=== PATIENT | female | born 1950 | race Caucasian/White ===

== ENCOUNTER 2021-03-23 21:00 | Inpatient (IN) ==
[2021-03-23 22:35] LABS: Basophils % 0.4 %; Eosinophils # 0.1 K/mcL (0.0-0.6); Eosinophils % 0.5 %; Hematocrit 35.4 % (35.3-44.9); Hemoglobin 13.2 g/dL (11.5-15.4); Immature Granulocytes % 0.3 % (0-4); Lymphocytes # 1.7 K/mcL (0.6-4.6); Lymphocytes % 18.1 %; Mean Corpuscular Volume 88.5 fL (83.0-100.0); Mean Platelet Volume 9.4 fL (9.4-12.4); Monocytes # 0.6 K/mcL (0.0-1.3); Monocytes % 6.5 %; Neutrophils # 6.8 K/mcL (1.6-8.9); Platelet Count 343 K/mcL (140-400); Red Cell Distribution Width 12.6 % (11.5-14.5); Segmented Neutrophils % 74.2 %; White Blood Count 9.2 K/mcL (4.3-11.1)
[2021-03-23 22:36] LABS: Mean Corpuscular HGB Conc 37.3 g/dL (31.6-35.5)
[2021-03-23 22:54] LABS: BUN/Creatinine Ratio 19 (6-26); Blood Urea Nitrogen 14 mg/dL (8-23); Carbon Dioxide 27 mEq/L (23-29); Chloride 92 mEq/L (98-107); Glucose 122 mg/dL (70-105); Osmolality,Calculated 268 (280-300); Potassium 3.4 mEq/L (3.5-5.1); Sodium 128 mEq/L (136-145); eGFR For African Americans > 60 (> 60); eGFR For Non-African Americans > 60 (> 60)
[2021-03-23 23:08] LABS: Troponin I 1.35 ng/mL (< 0.04)
[2021-03-23] MEDS ORDERED: Aspirin 325 MG TABLET PO ONE (23:16)
[2021-03-23] MEDS ORDERED: 0.9 % Sodium Chloride 1,000 ML IV ONE (23:17)
[2021-03-23] MEDS ORDERED: *HR* Heparin 5,000 UNIT/ML VIAL IVP ONE (23:24)
[2021-03-23] MEDS ORDERED: *HR* Heparin 5,000 UNIT/ML VIAL IVP PRN ×2 (23:24)
[2021-03-23] MEDS ORDERED: Perflutren Lipid Microsphere 1.3 ML in 0.9 % Sodium Chloride 8.7 ML IVP PRN (23:31)
[2021-03-24 00:11] LABS: Hemoglobin 14.2 g/dL (11.5-15.4); Mean Corpuscular HGB Conc 36.4 g/dL (31.6-35.5); Mean Corpuscular Hemoglobin 31.8 pg (28.0-33.3); Mean Corpuscular Volume 87.4 fL (83.0-100.0); Mean Platelet Volume 9.2 fL (9.4-12.4); Platelet Count 371 K/mcL (140-400); Red Blood Count 4.46 M/mcL (3.82-4.97); Red Cell Distribution Width 12.6 % (11.5-14.5); White Blood Count 8.8 K/mcL (4.3-11.1)
[2021-03-24 00:21] LABS: Heparin anti-factor XA UFH < 0.04 IU/mL (0.30-0.70); Prothrombin Time 10.9 Seconds (9.4-12.1)
[2021-03-24] MEDS: Heparin 25,000UNIT/250ML 1/2NS 25,000 UNIT/250 ML IV.SOLN IVC SCH ×2 (00:56→23:32)
[2021-03-24] MEDS ORDERED: Acetaminophen 325 MG TABLET PO PRN (01:02)
[2021-03-24] MEDS ORDERED: Naloxone 0.4 MG/ML INJ IVP PRN (01:02)
[2021-03-24] MEDS ORDERED: Melatonin 3 MG TABLET PO PRN (01:02)
[2021-03-24] MEDS ORDERED: Ondansetron 4 MG/2 ML VIAL IVP PRN (01:02)
[2021-03-24 07:32] LABS: Basophils # 0.1 K/mcL (0.0-0.2); Basophils % 0.9 %; Eosinophils # 0.1 K/mcL (0.0-0.6); Eosinophils % 1.3 %; Hematocrit 31.3 % (35.3-44.9); Immature Granulocytes % 0.2 % (0-4); Lymphocytes # 2.2 K/mcL (0.6-4.6); Lymphocytes % 34.9 %; Mean Corpuscular HGB Conc 36.7 g/dL (31.6-35.5); Mean Corpuscular Hemoglobin 32.5 pg (28.0-33.3); Mean Corpuscular Volume 88.4 fL (83.0-100.0); Mean Platelet Volume 9.2 fL (9.4-12.4); Monocytes # 0.5 K/mcL (0.0-1.3); Monocytes % 8.5 %; Neutrophils # 3.4 K/mcL (1.6-8.9); Platelet Count 298 K/mcL (140-400); Red Blood Count 3.54 M/mcL (3.82-4.97); Red Cell Distribution Width 12.9 % (11.5-14.5); Segmented Neutrophils % 54.2 %; White Blood Count 6.3 K/mcL (4.3-11.1)
[2021-03-24 07:50] LABS: Hemoglobin 11.5 g/dL (11.5-15.4)
[2021-03-24] MEDS ORDERED: *HR* Dextrose 50 % in Water (Syg) 50 ML SYRINGE IVP PRN (07:54)
[2021-03-24] MEDS ORDERED: D5% in Water 1,000 ML IVC PRN (07:54)
[2021-03-24] MEDS ORDERED: Dextrose Gel 15 GM/37.5 ML TUBE PO PRN ×2 (07:54)
[2021-03-24 07:58] LABS: BUN/Creatinine Ratio 16 (6-26); Blood Urea Nitrogen 12 mg/dL (8-23); Calcium 9.2 mg/dL (8.6-10.3); Carbon Dioxide 26 mEq/L (23-29); Chloride 100 mEq/L (98-107); Chol/HDL Ratio 2.3 (0-4.9); Cholesterol 160 mg/dL (< 200); Glucose 97 mg/dL (70-105); HDL Cholesterol 71 mg/dL (40-59); LDL Cholesterol,Calculated 79 mg/dL (< 100); Osmolality,Calculated 272 (280-300); Potassium 3.5 mEq/L (3.5-5.1); Sodium 131 mEq/L (136-145); Triglycerides 50 mg/dL (< 150); eGFR For African Americans > 60 (> 60); eGFR For Non-African Americans > 60 (> 60)
[2021-03-24 09:19] LABS: INR 1.1
[2021-03-24] MEDS: Metoprolol XL (24 HR) Succ 25 MG TAB.ER.24H PO SCH (09:43)
[2021-03-24] MEDS: Aspirin 81 MG TAB.CHEW PO SCH (09:43)
[2021-03-24 10:10] LABS: Magnesium 1.8 mg/dL (1.6-2.6)
[2021-03-24 10:26] LABS: Thyroid Stimulating Hormone 2.501 mcIU/mL (0.340-5.600)
[2021-03-24 10:36] LABS: Estimated Average Glucose 117 mg/dl; Hemoglobin A1C 5.7 %
[2021-03-24 12:02] LABS: Hematocrit 32.9 % (35.3-44.9); Hemoglobin 12.3 g/dL (11.5-15.4)
[2021-03-25 01:09] LABS: Hematocrit 34.7 % (35.3-44.9); Mean Corpuscular HGB Conc 34.6 g/dL (31.6-35.5); Mean Corpuscular Hemoglobin 31.3 pg (28.0-33.3); Mean Corpuscular Volume 90.6 fL (83.0-100.0); Mean Platelet Volume 9.3 fL (9.4-12.4); Platelet Count 284 K/mcL (140-400); Red Blood Count 3.83 M/mcL (3.82-4.97); Red Cell Distribution Width 13.2 % (11.5-14.5)
[2021-03-25 01:31] LABS: BUN/Creatinine Ratio 18 (6-26); Blood Urea Nitrogen 14 mg/dL (8-23); Calcium 9.2 mg/dL (8.6-10.3); Carbon Dioxide 25 mEq/L (23-29); Chloride 101 mEq/L (98-107); Glucose 103 mg/dL (70-105); Iron 108 mcg/dL (50-170); Magnesium 2.2 mg/dL (1.6-2.6); Osmolality,Calculated 273 (280-300); Potassium 4.2 mEq/L (3.5-5.1); Sodium 131 mEq/L (136-145); eGFR For African Americans > 60 (> 60); eGFR For Non-African Americans > 60 (> 60)
[2021-03-25 01:47] LABS: Ferritin 51 ng/mL (10-120)
[2021-03-25 01:55] LABS: Folate > 22.3 ng/mL (3.0-16.0); Vitamin B12 1147 pg/mL (250-1100)
[2021-03-25 02:32] LABS: % Iron Saturation 38 % (15-50); Transferrin 202 mg/dL (203-362)
[2021-03-25] MEDS: Multivit/Ca/Min/Fe/FA 1 TAB TABLET PO SCH (08:01)
[2021-03-25] MEDS: Aspirin 81 MG TAB.CHEW PO SCH (08:09)
[2021-03-25] MEDS: Metoprolol XL (24 HR) Succ 25 MG TAB.ER.24H PO SCH (08:14)
[2021-03-25] MEDS ORDERED: ISOVUE-370 200 ML INFUS..BTL ONE (08:37)
[2021-03-25] MEDS ORDERED: Nitroglycerin 1,000 MCG/5 ML VIAL IV ONE (08:37)
[2021-03-25] MEDS ORDERED: *HR* Heparin 10,000 UNIT/10 ML VIAL ONE (08:37)
[2021-03-25] MEDS ORDERED: 0.9 % Sodium Chloride 1,000 ML ONE (08:37)
[2021-03-25] MEDS ORDERED: Heparin 1,000 UNITS/500 mL 500 ML ONE (08:37)
[2021-03-25] MEDS ORDERED: *HR* Midazolam HCl 2 MG/2 ML VIAL ONE (08:53)
[2021-03-25] MEDS ORDERED: *HR* FentaNYL (PF) 100 MCG/2 ML VIAL ONE (08:53)
[2021-03-25] MEDS: lisinopriL 5 MG TABLET PO SCH (14:40)
[2021-03-25] MEDS ORDERED: *HR* Heparin 5,000 UNIT/ML VIAL ONE (19:45)
[2021-03-25] MEDS: *HR* Heparin 5,000 UNIT/ML VIAL SQ SCH (19:52)
[2021-03-26 02:02] LABS: Hematocrit 32.7 % (35.3-44.9); Hemoglobin 11.9 g/dL (11.5-15.4); Mean Corpuscular HGB Conc 36.4 g/dL (31.6-35.5); Mean Corpuscular Hemoglobin 33.7 pg (28.0-33.3); Mean Corpuscular Volume 92.6 fL (83.0-100.0); Mean Platelet Volume 9.4 fL (9.4-12.4); Platelet Count 278 K/mcL (140-400); Red Blood Count 3.53 M/mcL (3.82-4.97); Red Cell Distribution Width 13.4 % (11.5-14.5); White Blood Count 6.3 K/mcL (4.3-11.1)
[2021-03-26 02:32] LABS: BUN/Creatinine Ratio 13 (6-26); Blood Urea Nitrogen 12 mg/dL (8-23); Calcium 9.4 mg/dL (8.6-10.3); Carbon Dioxide 25 mEq/L (23-29); Chloride 102 mEq/L (98-107); Glucose 95 mg/dL (70-105); Magnesium 1.9 mg/dL (1.6-2.6); Osmolality,Calculated 278 (280-300); Phosphorous 3.5 mg/dL (2.7-4.5); Potassium 3.9 mEq/L (3.5-5.1); Sodium 134 mEq/L (136-145); eGFR For African Americans > 60 (> 60); eGFR For Non-African Americans > 60 (> 60)
[2021-03-26] MEDS: *HR* Heparin 5,000 UNIT/ML VIAL SQ SCH (05:40)
[2021-03-26] MEDS: Multivit/Ca/Min/Fe/FA 1 TAB TABLET PO SCH (07:59)
[2021-03-26] MEDS: Aspirin 81 MG TAB.CHEW PO SCH (07:59)
[2021-03-26 08:03] VITALS: BP 100/64; PULSE 77; TEMP 97.7; O2SAT 99
[2021-03-26] MEDS: Metoprolol XL (24 HR) Succ 25 MG TAB.ER.24H PO SCH (08:03)
[2021-03-26] MEDS: lisinopriL 5 MG TABLET PO SCH (08:03)
[2021-03-26] MEDS ORDERED: FLU Vac QV 21-22 (6Month+)/PF 0.5 ML SYRINGE IM ONE (09:53)
== END 2021-03-26 12:48 | disposition home or self-care (01) | DRG 913 ==
LOC: 2ANU 21:00 → EMEROOARM 21:00 → SUATTDRO 03-24 00:36 → 2ANU 03-24 01:25
PROVIDERS: ADMIT Family Medicine; ATTEND Internal Medicine